=== PATIENT | female | born 1990 | race Two or more races ===

== ENCOUNTER → 2024-12-02 | Outpatient (CLI) | payer MEDICAID, SELFPAY ==
--- NOTE | 2024-12-02 09:15 | XR_ITS ---
Examination: Abdomen sonogram, Limited Date and time of exam: December 02, 2024 0924 hours INDICATIONS: Elevated liver enzymes on laboratory examination performed 3 months ago Technique: Real-time zhao scale transabdominal sonographic images of the upper abdomen obtained. Findings: Absent gallbladder Normal common bile duct 0.2 cm Pancreatic head 3.2 cm Liver 19.7 cm fatty infiltration no focal liver lesions Normal hepatopedal portal venous flow Patent IVC IMPRESSION: Normal common bile duct Moderate hepatomegaly fatty liver
== END | disposition home or self-care (01) ==
LOC: CDIM 09:06
PROVIDERS: PCP Nurse Practitioner Primary Care; Referring Provider Nurse Practitioner Primary Care; Visit Provider Nurse Practitioner Primary Care
DX: K76.0 Fatty (change of) liver, not elsewhere classified (principal)
CPT/HCPCS: 76705

== ENCOUNTER 2025-04-29 07:40 | Emergency (ER) | payer MEDICAID, SELFPAY ==
[2025-04-29 07:46] VITALS: BP 150/80; PULSE 86; RESP 18; TEMP 37; O2SAT 98; BMI 48.3
--- NOTE | 2025-04-29 07:47 | XR_ITS ---
Examination: Wrist, right 3 views Technique: Wrist AP, oblique, lateral 3 views Date and time of exam: April 29, 2025 0803 hours INDICATIONS: Lifting injury to the wrist today, wrist pain FINDINGS: A bracelet overlies the wrist which impairs bone detail No acute fracture depicted IMPRESSION: Limited study, no acute fracture depicted
--- NOTE | 2025-04-29 07:48 | EDNOTE_ITS ---
Upper Extremity Injury RME/HPI General Chief Complaint: Hand/Wrist Problems Stated Complaint: Right wrist pain since last night Time Seen by Provider: 04/29/25 07:43 Source: patient Arrival date/time: 04/29/25 07:40 34-year-old female with no known medical history presents to the emergency room with a chief complaint of pain and tenderness to her right wrist after lifting water jugs and hearing a pop yesterday afternoon. Mode of arrival: ambulatory Limitations: no limitations Related Data Previous Rx's ?Medication ?Instructions ?Recorded ibuprofen 800 mg tablet 800 mg PO TID PRN pain #30 t abs 11/01/21 hydrocortisone acetate 25 mg 25 mg MN BID #24 ea 11/02 rectal suppository (Hemmorex-HC) sennosides 8.6 mg-docusate sodium 1 tab-cap PO BID #30 tabs 11/02/21 50 mg tablet (Colace 2-In-1) ibuprofen 800 mg tablet 800 mg PO TID PRN pain #30 t abs 10/30/22 pantoprazole 40 mg tablet,delayed 40 mg PO QDAY #30 ta bs 05/19/24 release Allergies Allergy/AdvReac Type Severity Reaction Status Date / Time No Known Allergies Allergy Verified 04/29/25 07:43 Review of Systems Review of Systems Systems Reviewed: All systems reviewed, normal except as documented Constitutional Constitutional: Reports system reviewed and no additional complaints, except as documented, Denies fatigue, Denies fever(s), Denies headache(s) and Denies weakness Eyes Eyes: Reports system reviewed and no additional complaints, except as documented, Denies blurry vision and Denies change in vision ENT Ears, Nose, Mouth, and Throat: Reports system reviewed and no additional complaints, except as documented, Denies otalgia, Denies headache(s), Denies nasal congestion, Denies throat swelling and Denies vertigo Cardiovascular Cardiovascular: Reports system reviewed and no additional complaints, except as documented, Denies chest pain, Denies dyspnea and Denies dyspnea on exertion Respiratory Respiratory: Reports system reviewed and no additional complaints, except as documented, Denies chest congestion, Denies cough, Denies dyspnea, Denies dyspnea on exertion and Denies wheezing Gastrointestinal Gastrointestinal: Reports system reviewed and no additional complaints, except as documented, Denies abdominal pain, Denies cramping, Denies nausea and Denies vomiting Genitourinary Genitourinary: Reports system reviewed and no additional complaints, except as documented Musculoskeletal Musculoskeletal: Reports system reviewed and no additional complaints, except as documented, Reports arthralgias, Denies back pain, Reports joint swelling and Reports limited range of motion Integumentary/Breasts Skin/Breast: Reports system reviewed and no additional complaints, except as documented and Denies wounds Neurologic Neurologic: Reports system reviewed and no additional complaints, except as documented, Denies confusion, Denies headache(s), Denies lack of coordination, Denies vertigo and Denies weakness Psychiatric Psychiatric: Reports system reviewed and no additional complaints, except as documented, Denies anxiety, Denies confusion, Denies depression, Denies paranoia, Denies suicidal ideation and Denies tactile hallucinations Endocrine Endocrine: Reports system reviewed and no additional complaints, except as documented and Denies fatigue Hematologic/Lymphatic Hematologic/Lymphatic: Reports system reviewed and no additional complaints, except as documented and Denies lymphadenopathy Allergic/Immunologic Allergic/Immunologic: Reports system reviewed and no additional complaints, except as documented, Denies throat swelling, Denies urticaria and Denies wheezing Past Medical History Social History SMOKING STATUS: Former smoker ED Exam General Limitations: Present no limitations General appearance: Present alert and in no apparent distress Head Head exam: Present atraumatic Eye Eye exam: Present normal appearance, PERRL and EOMI ENT ENT exam: Present normal exam, normal oropharynx and mucous membranes moist Neck Neck exam: Present normal inspection, full ROM and trachea midline Chest Chest inspection: Present normal inspection and symmetric chest wall rise Respiratory Respiratory exam: Present normal lung sounds bilaterally Cardiovascular Cardiovascular exam: Present regular rate, normal rhythm and normal heart sounds Abdominal Exam Abdominal exam: Present soft and normal bowel sounds Extremities Exam Extremities exam: Present normal inspection and full ROM Expanded Upper Extremity Exam Shoulder exam: Present normal inspection Arm exam: Present normal inspection Elbow exam: Present normal inspection Forearm/Wrist exam: Present tenderness and swelling; Absent full ROM Hand exam: Present normal inspection Vascular exam: Normal capillary refill Back Exam Back exam: Present normal inspection and full ROM Neurological Exam Neurological exam: Present alert, oriented X3 and CN II-XII intact Psychiatric Psychiatric exam: Present normal affect and normal mood Skin Skin exam: Present warm, dry, intact and normal color Course Quality Measures none Orders Category Date Time Status ferdinand wrap [Splint / Immobilizer] STAT Care 04/29/25 09:19 Active XR wrist comp RT min 3V Stat Exams 04/29/25 07:47 Completed Vital Signs Vital signs: Vital Signs Temperature 98.6 F 04/29/25 07:46 Pulse Rate 86 04/29/25 07:46 Respiratory Rate 18 04/29/25 07:46 Blood Pressure 150/80 H 04/29/25 07:46 Pulse Oximetry (%) 98 04/29/25 07:46 Oxygen Delivery Method Room Air 04/29/25 07:46 Extremity Injury MDM Narrative MDM Narrative:: 34-year-old female with no known medical history presents to the emergency room with a chief complaint of pain and tenderness to her right wrist after lifting water jugs and hearing a pop yesterday afternoon. Patient is hemodynamically stable and in no apparent distress Physical examination shows some limited range of motion the patient is able to move her wrist but states she is having a lot of pain and tenderness. Patient states she heard a pop initially when the injury first happened. X-rays were completed and it was a limited study but there is no obvious or acute fracture Patient was discharged and educated to follow-up with primary care provider in the next 24 to 48 hours and return to the emergency room for any evidence of worsening signs or symptoms Patient data External records reviewed:: [facility] previous records Clinical information provided by:: patient Social determinants that could affect healthcare access:: none Patient has the following chronic illnesses:: No chronic illness How is presenting disease/condition affected by chronic disease/condition?: no chronic disease Evaluation data The following diagnostics were reviewed and interpreted by me:: lab results and radiology exam(s) Lab and/or radiology exams considered but not ordered:: Labs and radiology exams considered in Interpretation Summary: Wrist [id number]: A bracelet overlies the wrist which impairs bone detail No acute fracture depicted IMPRESSION: Limited study, no acute fracture depicted Medications / Prescriptions Medications or Prescriptions considered but not ordered:: Medication not given Medication administrations:: Medication not given Consultations Consultation(s) initiated? (list below): No Diagnosis Upper Extremity Injury Differential Diagnosis: sprain and strain of wrist and fracture of wrist Most likely diagnosis given after review of the tests above:: Sprain or strain of wrist Admission Indicated Admission indicated?: not indicated Admission Request Was there a request for admission?: No Disposition Plan Disposition Plan: Discharge Discharge Attestation Discharge Attestation: The patient and all family members were given an opportunity to ask questions and understood the discharge instructions. Discharge instructions specifically effects, indications for sooner follow up or return to the emergency department, and the expected course of current diagnosis. Patient condition: Stable Discharge Plan Plan Patient Disposition: HOME (Self Care) Discharge Disposition comment: Stable Prescriptions/Referrals Prescriptions/Med Rec: No Action ibuprofen 800 mg tablet 800 mg PO TID PRN (Reason: pain) Qty: 30 0RF hydrocortisone acetate [Hemmorex-HC] 25 mg suppository 25 mg MN BID Qty: 24 0RF sennosides-docusate sodium [Colace 2-In-1] 8.6-50 mg tablet 1 tab-cap PO BID Qty: 30 0RF pantoprazole 40 mg tablet,delayed release (DR/EC) 40 mg PO QDAY Qty: 30 0RF ibuprofen 800 mg tablet 800 mg PO TID PRN (Reason: pain) Qty: 30 0RF Referrals: Raymond REY)Aneta PA-C [Primary Care Provider] - In 1 week Problem List Clinical Impression: Sprain and strain of wrist Patient/Caregiver Discharge Instructions Additional Instructions: Please follow-up with your primary doctor in the next 24 to 48 hours Your x-rays were completed but were negative for any acute fracture For any evidence of worsening signs or symptoms return to the emergency room immediately Print Language: Georgian Stand Alone Forms: Shanice Award Info., Patient Portal Info Letter PA/ROYER Supervising Physician PA/ROYER Supervising Physician: Dr. Jay
[2025-04-29 09:28] VITALS: BP 120/71; PULSE 83; RESP 16; TEMP 36.7; O2SAT 98
== END 2025-04-29 09:29 | disposition home or self-care (01) ==
PROVIDERS: Emergency Provider Emergency Medicine; PCP Physician Assistant
DX: S63.501A Unspecified sprain of right wrist, initial encounter (principal); S66.911A Strain of unspecified muscle, fascia and tendon at wrist and hand level, right hand, initial encounter; X50.0XXA Overexertion from strenuous movement or load, initial encounter
CPT/HCPCS: 73110; 99283

== ENCOUNTER 2025-06-19 18:21 | Emergency (ER) | payer MEDICAID, SELFPAY ==
[2025-06-19 18:24] VITALS: BMI 42.5
[2025-06-19 18:53] VITALS: BP 149/82; PULSE 84; RESP 17; TEMP 37.1; O2SAT 97
--- NOTE | 2025-06-19 19:29 | PD.EDRME ---
Rapid Medical Screening Exam E Arrival date/time: 06/19/25 18:21 This is a 34-year-old female that comes into the emergency room with complaints of left ear pain, sore throat, abdominal pain that has been going on for the past few days. Patient states that no matter what she eats her stomach always hurts. Patient denies urinary symptoms. Patient denies any sick contacts. I have greeted and performed a focused initial assessment of this patient. Initial appropriate labs ordered at this time. A comprehensive ED assessment and evaluation of the patient and analysis of all test and completion of medical decision making process will be conducted by additional ED provider. Chief Complaint: Abdominal Pain Time Seen by Provider: 06/19/25 18:51 Vital signs: Vital Signs Temperature 98.8 F 06/19/25 18:53 Pulse Rate 84 06/19/25 18:53 Respiratory Rate 17 06/19/25 18:53 Blood Pressure 149/82 H 06/19/25 18:53 Pulse Oximetry (%) 97 06/19/25 18:53 Oxygen Delivery Method Room Air 06/19/25 18:53
[2025-06-19] MEDS: ONDANSETRON ODT 4 MG TABRAP PO (19:37)
[2025-06-19] MEDS: ACETAMINOPHEN 500 MG TABLET 1000 MG PO (19:38)
[2025-06-19 20:16] LABS: Alanine Aminotransferase 25 U/L (10-49); Albumin, Serum 4.1 gm/dL (3.5-5.0); Albumin/Globulin Ratio 1.7 (1.2-2.2); Alkaline Phosphatase 111 U/L (46-116); Anion Gap 10 (7-16); Aspartate Amino Transferase 25 U/L (0-34); BUN/Creatinine Ratio 9 Ratio (12-20); Bilirubin,Total 0.4 mg/dL (0.3-1.2); Blood Urea Nitrogen 7 mg/dL (9-23); Calcium 9.2 mg/dL (8.3-10.6); Calcium (Corrected) 9.2 mg/dL (8.5-10.1); Carbon Dioxide 25.5 mMol/L (20.0-31.0); Chloride 108 mMol/L (98-107); Creatinine (Component) 0.8 mg/dL (0.6-1.3); Estimated Creatinine Clearance 116.2 mL/min (>60); Globulin 2.4 gm/dL (2.3-3.5); Glucose 96 mg/dL (74-106); Lipase 46 U/L (12-53); Osmolality,Calculated 282 (275-295); Potassium 4.3 mMol/L (3.4-5.1); Sodium 143 mMol/L (136-145); Total Protein 6.5 gm/dL (5.7-8.2); eGFR > 60 See Note
[2025-06-19 20:20] LABS: Collection Type, Urine Voided
[2025-06-19 20:32] VITALS: BP 142/88; PULSE 79; RESP 19; TEMP 37.1; O2SAT 99
[2025-06-19 20:34] LABS: Bacteria,Urine Rare; Bilirubin,Urine Negative (Negative); Blood,Urine Negative (Negative); Clarity,Urine Turbid (Clear/Hazy); Color,Urine Yellow (Lt Yel-Yel); Culture Indicated,Urine Not Indicated; Glucose, Urine Negative (Negative); Ketones,Urine Negative (Negative); Leukocyte Esterase,Urine Positive (Negative); Nitrite,Urine Negative (Negative); PH,Urine 5.5 (5.0-7.0); Protein,Urine Trace (Neg - Trace); RBC,Urine 7 /hpf (0-3); Specific Gravity,Urine 1.025 (1.001-1.035); Squamous Epithelial Cell,Urine 57 /hpf (0-5); Urobilinogen,Urine 2.0 mg/dL (0.0-1.0); WBC,Urine 5 /hpf (0-5)
[2025-06-19 20:39] LABS: HCG Qualitative,Urine Negative
[2025-06-19 20:44] LABS: Basophils # (Auto) 0.0 Thou/mm3 (0.0-0.2); Basophils % (Auto) 1 % (0-2.5); Eosinophils # (Auto) 0.1 Thou/mm3 (0.0-0.5); Eosinophils % (Auto) 2 % (0-10); Hematocrit 31.8 % (36.0-46.0); Hemoglobin 9.7 g/dL (12.0-16.0); Immature Granulocytes Auto 0.03 Thou/mm3 (0.00-0.00); Lymphocytes # (Auto) 3.0 Thou/mm3 (1.0-4.8); Lymphocytes % (Auto) 36 % (10-50); Mean Corpuscular HGB Conc 30.5 g/dl (31.0-37.0); Mean Corpuscular Hemoglobin 22.4 pg (25.0-35.0); Mean Corpuscular Volume 73 fL (80-100); Monocytes # (Auto) 0.4 Thou/mm3 (0.0-0.8); Monocytes % (Auto) 5 % (0-12); Neutrophils # (Auto) 4.6 Thou/mm3 (1.8-7.7); Neutrophils % (Auto) 56 % (37-80); Nucleated Red Blood Cell # 0.00 Thou/mm3 (0.00-0.00); Nucleated Red Blood Cell % 0 /100 WBC (0); Platelet Count 349 Thou/mm3 (140-440); RDW Standard Deviation 42.2 fL (36.4-46.3); Red Blood Count 4.34 Miln/mm3 (4.00-5.20); White Blood Count 8.2 Thou/mm3 (3.6-11.0)
--- NOTE | 2025-06-19 21:06 | EDNOTE_ITS ---
ED Ear RME/HPI General Chief complaint: Abdominal Pain Stated complaint: ABD PAIN, THROAT JACKSON, L) EAR SWELLING Time Seen by Provider: 06/19/25 18:51 Arrival date/time: 06/19/25 18:21 This is a 34-year-old female that comes into the emergency room with complaints of left ear pain, sore throat, abdominal pain that has been going on for the past few days. Patient states that no matter what she eats her stomach always hurts. Patient denies urinary symptoms. Patient denies any sick contacts. RME / HPI RME / HPI Narrative: 06/19/25 18:21 This is a 34-year-old female that comes into the emergency room with complaints of left ear pain, sore throat, abdominal pain that has been going on for the past few days. Patient states that no matter what she eats her stomach always hurts. Patient denies urinary symptoms. Patient denies any sick contacts. I have greeted and performed a focused initial assessment of this patient. Initial appropriate labs ordered at this time. A comprehensive ED assessment and evaluation of the patient and analysis of all test and completion of medical decision making process will be conducted by additional ED provider. Related Data Previous Rx's ?Medication ?Instructions ?Recorded ibuprofen 800 mg tablet 800 mg PO TID PRN pain #30 t abs 11/01/21 hydrocortisone acetate [address] BID #24 ea 11/02 rectal suppository (Hemmorex-HC) sennosides 8.6 mg-docusate sodium 1 tab-cap PO BID #30 tabs 11/02/21 50 mg tablet (Colace 2-In-1) ibuprofen 800 mg tablet 800 mg PO TID PRN pain #30 t abs 10/30/22 pantoprazole 40 mg tablet,delayed 40 mg PO QDAY #30 ta bs 05/19/24 release Allergies Allergy/AdvReac Type Severity Reaction Status Date / Time No Known Allergies Allergy Verified 06/19/25 18:27 Review of Systems Review of Systems Systems Reviewed: All systems reviewed, normal except as documented Past Medical History Social History SMOKING STATUS: Former smoker ED Exam Narrative Physical exam: VITAL SIGNS: Reviewed. GENERAL APPEARANCE: Alert and interactive, follows commands, no acute distress, HEAD AND FACE: Non-traumatic. ENT: PERRL, conjuctiva pink and clear, eyelid no trauma, Mucous membrane moist. left tm swollen and erythemic, ear idalia swollen and erythemic NECK: Supple, nontender, no nuchal rigidity. CHEST: No tenderness, no crepitus, no paradoxical movement, no retractions. LUNGS: Clear, well ventilated, symmetric, no rales, no wheezing, no rhonchi, no stridor, good breath sounds bilaterally. HEART: Regular rate, regular rhythm, no murmur, no gallops. ABDOMEN: Soft, nondistended, no guarding, nontender NEUROLOGICAL: Gross motor function intact sensory function intact, Appropriate for age. MUSCULOSKELETAL: low back nontender, full range of motion. EXTREMITIES: No redness no swelling no skin breakdown on bilateral foot and leg. Distal neurovascular status intact bilateral foot SKIN: Color pink, dry, no rash, no lacerations, no abrasions, no contusions. Course Quality Measures none Orders Category Date Time Status CBC Stat Lab 06/19/25 20:20 Completed Comprehensive Metabolic Panel Stat Lab 06/19/25 19:44 Completed HCG Qualitative,Urine Stat Lab 06/19/25 20:15 Completed Lipase Stat Lab 06/19/25 19:44 Completed Urinalysis, C/S if Indicated Stat Lab 06/19/25 20:15 Completed Acetaminophen Tab [Tylenol ES Tab] Med 06/19/25 19:28 Discontinued 1,000 mg PO X1 ONE Ibuprofen Tab [Motrin Tab] Med 06/19/25 19:28 Discontinued 800 mg PO X1 ONE Ondansetron Odt [Zofran Odt] Med 06/19/25 19:28 Discontinued 4 mg PO X1 ONE cefTRIAXone [Rocephin] 1,000 mg Med 06/19/25 21:08 Discontinued Lidocaine 1% 20 ml [Xylocaine 1% 20 ML] 2.1 ml IM X1 Vital Signs Vital signs: Vital Signs Temperature 98.8 F 06/19/25 18:53 Pulse Rate 84 06/19/25 18:53 Respiratory Rate 17 06/19/25 18:53 Blood Pressure 149/82 H 06/19/25 18:53 Pulse Oximetry (%) 97 06/19/25 18:53 Oxygen Delivery Method Room Air 06/19/25 18:53 Ear MDM Narrative MDM Narrative:: Labs reviewed. I spoke to patient to follow up with pmd about anemia. Pt given rocpehin, tylenol, ibuprofen long with zofran. Possible UTI. Will culture. Pt left ear appears infected. Will tx I spoke to patient at length. Pt told to follow up with pmd in 1-2 days. Pt verbalized understanding Patient data External records reviewed:: [facility] previous records Clinical information provided by:: patient Social determinants that could affect healthcare access:: none Patient has the following chronic illnesses:: none How is presenting disease/condition affected by chronic disease/condition?: no chronic disease Evaluation data The following diagnostics were reviewed and interpreted by me:: lab results Lab and/or radiology exams considered but not ordered:: none Interpretation Summary: see note Medications / Prescriptions Medications or Prescriptions considered but not ordered:: none Medication administrations:: Medication Administration History Discontinued Medications Acetaminophen (Acetaminophen 500 Mg Tablet) 1,000 mg PO X1 ONE Stop: 06/19/25 19:29 Last Admin: 06/19/25 19:38 Dose: 1,000 mg Documented By: RY Ceftriaxone Sodium 1,000 mg/ (Lidocaine HCl 2.1 ml) 0 mg IM X1 ONE Stop: 06/19/25 21:09 Last Admin: 06/19/25 21:20 Dose: 1,000 mg Documented By: TOVA Comments: pt will wait 25 min after shot befor dc Ibuprofen (Ibuprofen Tab 400 Mg Tablet) 800 mg PO X1 ONE Stop: 06/19/25 19:29 Ondansetron HCl (Ondansetron Odt 4 Mg Tabrap) 4 mg PO X1 ONE; Protocol Stop: 06/19/25 19:29 Last Admin: 06/19/25 19:37 Dose: 4 mg Documented By: RY see mar Consultations Consultation(s) initiated? (list below): No Diagnosis Most likely diagnosis given after review of the tests above:: anemia, otititis media, otitis externa Admission Indicated Admission indicated?: not indicated Admission Request Was there a request for admission?: No Disposition Plan Disposition Plan: Discharge Discharge Attestation Discharge Attestation: The patient and all family members were given an opportunity to ask questions and understood the discharge instructions. Discharge instructions specifically effects, indications for sooner follow up or return to the emergency department, and the expected course of current diagnosis. Patient condition: Stable Medical Decision Making Lab Data 06/19/25 20:20 06/19/25 19:44 Labs: Lab Results 06/19/25 06/19/25 06/19/25 Range/Units 19:44 20:15 20:20 WBC 8.2 (3.6-11.0) Thou/mm3 RBC 4.34 (4.00-5.20) Miln/mm3 Hgb 9.7 L (12.0-16.0) g/dL Hct 31.8 L (36.0-46.0) % MCV 73 L (80-100) fL MCH 22.4 L (25.0-35.0) pg MCHC 30.5 L (31.0-37.0) g/dl RDW Std Deviation 42.2 (36.4-46.3) fL Plt Count 349 (140-440) Thou/mm3 Neut % (Auto) 56 (37-80) % Lymph % (Auto) 36 (10-50) % Gove % (Auto) 5 (0-12) % Eos % (Auto) 2 (0-10) % Baso % (Auto) 1 (0-2.5) % Neut # (Auto) 4.6 (1.8-7.7) Thou/mm3 Lymph # (Auto) 3.0 (1.0-4.8) Thou/mm3 Gove # (Auto) 0.4 (0.0-0.8) Thou/mm3 Eos # (Auto) 0.1 (0.0-0.5) Thou/mm3 Baso # (Auto) 0.0 (0.0-0.2) Thou/mm3 Immature Gran # (Auto) 0.03 H (0.00-0.00) Thou/mm3 Absolute Nucleated RBC 0.00 (0.00-0.00) Thou/mm3 Immature Gran % 0 (0-0) % Nucleated RBC % 0 (0) /100 WBC Sodium 143 (136-145) mMol/L Potassium 4.3 (3.4-5.1) mMol/L Chloride 108 H (98-107) mMol/L Carbon Dioxide 25.5 (20.0-31.0) mMol/L Anion Gap 10 (7-16) BUN 7 L (9-23) mg/dL Creatinine 0.8 (0.6-1.3) mg/dL Estim Creat Clear Calc 116.2 (>60) mL/min eGFR > 60 (60 - ) See Note BUN/Creatinine Ratio 9 L (12-20) Ratio Glucose 96 (74-106) mg/dL Calculated Osmolality 282 (275-295) Calcium 9.2 (8.3-10.6) mg/dL Corrected Calcium 9.2 (8.5-10.1) mg/dL Total Bilirubin 0.4 (0.3-1.2) mg/dL AST 25 (0-34) U/L ALT 25 (10-49) U/L Alkaline Phosphatase 111 (46-116) U/L Total Protein 6.5 (5.7-8.2) gm/dL Albumin 4.1 (3.5-5.0) gm/dL Globulin 2.4 (2.3-3.5) gm/dL Albumin/Globulin Ratio 1.7 (1.2-2.2) Lipase 46 (12-53) U/L Ur Collection Type Voided Urine Color Yellow (Lt Yel-Yel) Urine Clarity Turbid A (Clear/Hazy) Urine pH 5.5 (5.0-7.0) Ur Specific [place] 1.025 (1.001-1.035) Urine Protein Trace (Neg - Trace) Urine Glucose (UA) Negative (Negative) Urine Ketones Negative (Negative) Urine Blood Negative (Negative) Urine Nitrite Negative (Negative) Urine Bilirubin Negative (Negative) Urine Urobilinogen (Auto) 2.0 (0.0-1.0) mg/dL Ur Leukocyte Esterase Positive (Negative) Urine RBC 7 H (0-3) /hpf Urine WBC 5 (0-5) /hpf Ur Squamous Epith Cells 57 H (0-5) /hpf Urine Bacteria Rare (None) Ur Culture Indicated? Not Indicated Urine HCG, Qual Negative Discharge Plan Plan Patient Disposition: HOME (Self Care) Patient condition on transfer: Stable Prescriptions/Referrals Prescriptions/Med Rec: No Action ibuprofen 800 mg tablet 800 mg PO TID PRN (Reason: pain) Qty: 30 0RF hydrocortisone acetate [Hemmorex-HC] [address]ository [address] BID Qty: 24 0RF sennosides-docusate sodium [Colace 2-In-1] 8.6-50 mg tablet 1 tab-cap PO BID Qty: 30 0RF pantoprazole 40 mg tablet,delayed release (DR/EC) 40 mg PO QDAY Qty: 30 0RF ibuprofen 800 mg tablet 800 mg PO TID PRN (Reason: pain) Qty: 30 0RF Referrals: Raymond ([facility]),QUITA Cornell [Primary Care Provider] - In 1 week Problem List Clinical Impression: Otitis media, Otitis externa, Anemia Patient/Caregiver Discharge Instructions Discharge Activity: activity as tolerated Education Materials: ED Otitis Media Antibiotic ..., ED External Ear Infection (Adult) Additional Instructions: Follow up with primary provider in 1-2 days. Come back to ED if symptoms change or worsen Print Language: Sierra Leonean Stand Alone Forms: Shanice Award Info., Patient Portal Info Letter PA/FLIGHT ENGINEER HELICOPTER Supervising Physician PA/FLIGHT ENGINEER HELICOPTER Supervising Physician: srikanth
[2025-06-19] MEDS: cefTRIAXone 1,000 MG, LIDOCAINE 1% 20 ML 2.1 ML IM (21:20)
[2025-06-19 21:50] VITALS: BP 139/84; PULSE 87; RESP 18; TEMP 36.8; O2SAT 98
== END 2025-06-19 22:05 | disposition home or self-care (01) ==
PROVIDERS: Nurse Practitioner Family; Emergency Provider Emergency Medicine; PCP Physician Assistant
DX: H66.92 Otitis media, unspecified, left ear (principal); H60.92 Unspecified otitis externa, left ear; D64.9 Anemia, unspecified; Z87.891 Personal history of nicotine dependence
CPT/HCPCS: 36415; 80053; 81001; 81025; 83690; 85025; 96372; 99283; J0696; J3490; Q0162; A9270

== ENCOUNTER 2025-08-15 11:39 | Emergency (ER) | payer MEDICAID, SELFPAY ==
[2025-08-15 11:40] VITALS: BMI 47.8
[2025-08-15 12:06] VITALS: BP 150/84; PULSE 97; RESP 18; TEMP 36.9; O2SAT 99
[2025-08-15] MEDS: METOCLOPRAMIDE 5 MG TABLET 10 MG PO (12:22)
[2025-08-15] MEDS: KETOROLAC INJ 60 MG/2 ML VIAL 30 MG IM (12:23)
[2025-08-15 13:02] LABS: Collection Type, Urine Clean Catch
[2025-08-15 13:05] LABS: Basophils # (Auto) 0.0 Thou/mm3 (0.0-0.2); Basophils % (Auto) 0 % (0-2.5); Eosinophils # (Auto) 0.1 Thou/mm3 (0.0-0.5); Eosinophils % (Auto) 2 % (0-10); Hematocrit 31.4 % (36.0-46.0); Hemoglobin 9.5 g/dL (12.0-16.0); Immature Granulocytes Auto 0.04 Thou/mm3 (0.00-0.00); Lymphocytes # (Auto) 1.3 Thou/mm3 (1.0-4.8); Lymphocytes % (Auto) 18 % (10-50); Mean Corpuscular HGB Conc 30.3 g/dl (31.0-37.0); Mean Corpuscular Hemoglobin 21.8 pg (25.0-35.0); Mean Corpuscular Volume 72 fL (80-100); Monocytes # (Auto) 0.2 Thou/mm3 (0.0-0.8); Monocytes % (Auto) 3 % (0-12); Neutrophils # (Auto) 5.6 Thou/mm3 (1.8-7.7); Neutrophils % (Auto) 76 % (37-80); Nucleated Red Blood Cell # 0.00 Thou/mm3 (0.00-0.00); Nucleated Red Blood Cell % 0 /100 WBC (0); Platelet Count 340 Thou/mm3 (140-440); RDW Standard Deviation 42.5 fL (36.4-46.3); Red Blood Count 4.35 Miln/mm3 (4.00-5.20); White Blood Count 7.3 Thou/mm3 (3.6-11.0)
[2025-08-15 13:10] LABS: Bilirubin,Urine Negative (Negative); Blood,Urine Negative (Negative); Clarity,Urine Turbid (Clear/Hazy); Color,Urine Yellow (Lt Yel-Yel); Glucose, Urine Negative (Negative); Ketones,Urine Negative (Negative); Leukocyte Esterase,Urine Negative (Negative); Nitrite,Urine Negative (Negative); PH,Urine 5.5 (5.0-7.0); Protein,Urine Negative (Neg - Trace); RBC,Urine 1 /hpf (0-3); Specific Gravity,Urine 1.019 (1.001-1.035); Squamous Epithelial Cell,Urine 15 /hpf (0-5); Urobilinogen,Urine Negative mg/dL (0.0-1.0); WBC,Urine 1 /hpf (0-5)
[2025-08-15 13:14] LABS: Alanine Aminotransferase 80 U/L (10-49); Albumin, Serum 4.5 gm/dL (3.5-5.0); Albumin/Globulin Ratio 1.9 (1.2-2.2); Alkaline Phosphatase 123 U/L (46-116); Anion Gap 12 (7-16); Aspartate Amino Transferase 65 U/L (0-34); BUN/Creatinine Ratio 9 Ratio (12-20); Bilirubin,Total 0.7 mg/dL (0.3-1.2); Blood Urea Nitrogen 7 mg/dL (9-23); Calcium 9.1 mg/dL (8.3-10.6); Calcium (Corrected) 9.1 mg/dL (8.5-10.1); Carbon Dioxide 24.5 mMol/L (20.0-31.0); Chloride 104 mMol/L (98-107); Creatinine (Component) 0.8 mg/dL (0.6-1.3); Estimated Creatinine Clearance 124.6 mL/min (>60); Globulin 2.4 gm/dL (2.3-3.5); Glucose 174 mg/dL (74-106); Lipase 27 U/L (12-53); Osmolality,Calculated 281 (275-295); Potassium 4.2 mMol/L (3.4-5.1); Sodium 140 mMol/L (136-145); Total Protein 6.9 gm/dL (5.7-8.2); eGFR > 60 See Note
--- NOTE | 2025-08-15 13:14 | PD.EDHA ---
ED Headache RME/HPI General Chief Complaint: Headache Stated Complaint: HEADACHE WITH VOMITING X 4 DAYS Time Seen by Provider: 08/15/25 11:53 Source: patient Arrival date/time: 08/15/25 11:39 34-year-old female with no known medical history presents to the emergency room with a chief complaint of abdominal cramping, vomiting, headache x 4 days Mode of arrival: ambulatory Limitations: no limitations Related Data Previous Rx's ?Medication ?Instructions ?Recorded ibuprofen 800 mg tablet 800 mg PO TID PRN pain #30 tabs 11/01/21 hydrocortisone acetate 25 mg 25 mg PA BID #24 ea 11/02/21 rectal suppository (Hemmorex-HC) sennosides 8.6 mg-docusate sodium 1 tab-cap PO BID #30 tabs 11/02/21 50 mg tablet (Colace 2-In-1) ibuprofen 800 mg tablet 800 mg PO TID PRN pain #30 tabs 10/30/22 pantoprazole 40 mg tablet,delayed 40 mg PO QDAY #30 tabs 05/19/24 release ondansetron 4 mg disintegrating 4 mg PO Q8H PRN nausea and 08/15/25 tablet vomiting #14 tabs Allergies Allergy/AdvReac Type Severity Reaction Status Date / Time No Known Allergies Allergy Verified 08/15/25 11:45 Review of Systems Review of Systems Systems Reviewed: All systems reviewed, normal except as documented Constitutional Constitutional: Reports system reviewed and no additional complaints, except as documented, Denies fatigue, Denies fever(s), Reports headache(s) and Denies weakness Eyes Eyes: Reports system reviewed and no additional complaints, except as documented, Denies blurry vision and Denies change in vision ENT Ears, Nose, Mouth, and Throat: Reports system reviewed and no additional complaints, except as documented, Denies otalgia, Reports headache(s), Denies nasal congestion, Denies throat swelling and Denies vertigo Cardiovascular Cardiovascular: Reports system reviewed and no additional complaints, except as documented, Denies chest pain, Denies dyspnea and Denies dyspnea on exertion Respiratory Respiratory: Reports system reviewed and no additional complaints, except as documented, Denies chest congestion, Denies cough, Denies dyspnea, Denies dyspnea on exertion and Denies wheezing Gastrointestinal Gastrointestinal: Reports system reviewed and no additional complaints, except as documented, Denies abdominal pain, Reports cramping, Reports nausea and Reports vomiting Genitourinary Genitourinary: Reports system reviewed and no additional complaints, except as documented Musculoskeletal Musculoskeletal: Reports system reviewed and no additional complaints, except as documented and Denies back pain Integumentary/Breasts Skin/Breast: Reports system reviewed and no additional complaints, except as documented and Denies wounds Neurologic Neurologic: Reports system reviewed and no additional complaints, except as documented, Denies confusion, Reports headache(s), Denies lack of coordination, Denies vertigo and Denies weakness Psychiatric Psychiatric: Reports system reviewed and no additional complaints, except as documented, Denies anxiety, Denies confusion, Denies depression, Denies paranoia, Denies suicidal ideation and Denies tactile hallucinations Endocrine Endocrine: Reports system reviewed and no additional complaints, except as documented and Denies fatigue Hematologic/Lymphatic Hematologic/Lymphatic: Reports system reviewed and no additional complaints, except as documented and Denies lymphadenopathy Allergic/Immunologic Allergic/Immunologic: Reports system reviewed and no additional complaints, except as documented, Denies throat swelling, Denies urticaria and Denies wheezing ED Exam General Limitations: Present no limitations General appearance: Present alert and in no apparent distress Head Head exam: Present atraumatic Eye Eye exam: Present normal appearance, PERRL and EOMI ENT ENT exam: Present normal exam, normal oropharynx and mucous membranes moist Neck Neck exam: Present normal inspection, full ROM and trachea midline Chest Chest inspection: Present normal inspection and symmetric chest wall rise Respiratory Respiratory exam: Present normal lung sounds bilaterally Cardiovascular Cardiovascular exam: Present regular rate, normal rhythm and normal heart sounds Abdominal Exam Abdominal exam: Present soft, tenderness and normal bowel sounds; Absent Morris's sign or tenderness at McBur[place]'s Point Abdominal tenderness: Present epigastrium and mild Extremities Exam Extremities exam: Present normal inspection and full ROM Back Exam Back exam: Present normal inspection and full ROM Neurological Exam Neurological exam: Present alert, oriented X3 and CN II-XII intact Psychiatric Psychiatric exam: Present normal affect and normal mood Skin Skin exam: Present warm, dry, intact and normal color Course Quality Measures none Orders Category Date Time Status CBC Stat Lab 08/15/25 12:16 Completed CMP [Comprehensive Metabolic Panel] Stat Lab 08/15/25 12:16 Completed HCG Qualitative,Urine Stat Lab 08/15/25 12:55 Completed Lipase Stat Lab 08/15/25 12:16 Completed UA [Urinalysis] Stat Lab 08/15/25 12:55 Completed Urine Culture Stat Lab 08/15/25 12:55 Received DiphenhydrAMINE [Benadryl] Med 08/15/25 12:03 Discontinued 25 mg PO X1 ONE Ketorolac Inj [Toradol Inj] Med 08/15/25 12:03 Discontinued 30 mg IM X1 ONE Metoclopramide [Reglan] Med 08/15/25 12:03 Discontinued 10 mg PO X1 ONE Vital Signs Vital signs: Vital Signs Temperature 98.4 F 08/15/25 12:06 Pulse Rate 97 08/15/25 12:06 Respiratory Rate 18 08/15/25 12:06 Blood Pressure 150/84 H 08/15/25 12:06 Pulse Oximetry (%) 99 08/15/25 12:06 Oxygen Delivery Method Room Air 08/15/25 12:06 Headache MDM Narrative MDM Narrative:: 34-year-old female with no known medical history presents to the emergency room with a chief complaint of abdominal cramping, vomiting, headache x 4 days Patient is hemodynamically stable and in no apparent distress Physical examination shows epigastric abdominal cramping. Patient has no right upper quadrant abdominal tenderness or right lower quadrant abdominal tenderness. There is a negative Morris sign CBC CMP were negative for any leukocytosis Medication was given medication to help her with her headache with significant improvement in her symptoms Patient was discharged and educated to follow-up with primary care provider in the next 24 to 48 hours and return to the emergency room for any evidence of worsening signs or symptoms Patient data External records reviewed:: [facility] previous records Clinical information provided by:: patient Social determinants that could affect healthcare access:: none Patient has the following chronic illnesses:: No chronic illness How is presenting disease/condition affected by chronic disease/condition?: no chronic disease Evaluation data The following diagnostics were reviewed and interpreted by me:: lab results and radiology exam(s) Lab and/or radiology exams considered but not ordered:: Labs and radiology exams considered and ordered Interpretation Summary: N/A Medications / Prescriptions Medications or Prescriptions considered but not ordered:: Medication given Medication administrations:: Medication Administration History Discontinued Medications Diphenhydramine HCl (Diphenhydramine 25 Mg Capsule) 25 mg PO X1 ONE Stop: 08/15/25 12:04 Last Admin: 08/15/25 12:22 Dose: 25 mg Documented By: RY Ketorolac Tromethamine (Ketorolac Inj 60 Mg/2 Ml Vial) 30 mg IM X1 ONE Stop: 08/15/25 12:04 Last Admin: 08/15/25 12:23 Dose: 30 mg Documented By: RY Metoclopramide HCl (Metoclopramide 5 Mg Tablet) 10 mg PO X1 ONE Stop: 08/15/25 12:04 Last Admin: 08/15/25 12:22 Dose: 10 mg Documented By: RY Medication given Consultations Consultation(s) initiated? (list below): No Diagnosis Differential diagnosis headache: migraine, tension headache, subarachnoid hemorrhage, headache and other (Gastroenteritis) Most likely diagnosis given after review of the tests above:: Headache Admission Indicated Admission indicated?: not indicated Admission Request Was there a request for admission?: No Disposition Plan Disposition Plan: Discharge Discharge Attestation Discharge Attestation: The patient and all family members were given an opportunity to ask questions and understood the discharge instructions. Discharge instructions specifically effects, indications for sooner follow up or return to the emergency department, and the expected course of current diagnosis. Patient condition: Stable Discharge Plan Plan Patient Disposition: HOME (Self Care) Discharge Disposition comment: Stable Prescriptions/Referrals Prescriptions/Med Rec: New ondansetron 4 mg tablet,disintegrating 4 mg PO Q8H PRN (Reason: nausea and vomiting) Qty: 14 0RF No Action ibuprofen 800 mg tablet 800 mg PO TID PRN (Reason: pain) Qty: 30 0RF hydrocortisone acetate [Hemmorex-HC] 25 mg suppository 25 mg PA BID Qty: 24 0RF sennosides-docusate sodium [Colace 2-In-1] 8.6-50 mg tablet 1 tab-cap PO BID Qty: 30 0RF pantoprazole 40 mg tablet,delayed release (DR/EC) 40 mg PO QDAY Qty: 30 0RF ibuprofen 800 mg tablet 800 mg PO TID PRN (Reason: pain) Qty: 30 0RF Referrals: Raymond (HARRY)Aneta PA-C [Primary Care Provider] - In 1 week Problem List Clinical Impression: Headache, Gastroenteritis Patient/Caregiver Discharge Instructions Education Materials: ED Gastroenteritis, Noninfectious Additional Instructions: Please follow-up with your primary care provider in the next 24 to 48 hours Your blood work and urinalysis were all within normal limits For any evidence of worsening signs or symptoms return to the emergency room immediately Print Language: Irish Stand Alone Forms: Shanice Award Info., Work/School Release, Patient Portal Info Letter
[2025-08-15 13:17] LABS: HCG Qualitative,Urine Negative
== END 2025-08-15 14:16 | disposition home or self-care (01) ==
PROVIDERS: Emergency Provider Nurse Practitioner Family; PCP Physician Assistant
DX: K52.9 Noninfective gastroenteritis and colitis, unspecified (principal)
CPT/HCPCS: 36415; 80053; 81001; 81025; 83690; 85025; 87086; 96372; 99283; J1885; A9270